=== PATIENT | male | born 1960 | race African-American/Black ===

== ENCOUNTER 2024-02-03 21:27 | Inpatient (IN) | payer SELFPAY ==
[~2024-02-03] VITALS: Ht 167.6 cm; Wt 100.0 kg
[2024-02-03 22:10] LABS: BASOPHILS % 0.3 % (0.0-2.0); EOSINOPHILS % 0.1 % (0.0-5.0); HEMATOCRIT. 39.2 % (42.0-52.0); HEMOGLOBIN. 13.3 g/dL (14.0-18.0); LYMPHOCYTES % 13.3 % (20.0-50.0); MEAN CORPUSCULAR HEMOGLOBIN 31.1 pg (28.0-32.0); MEAN CORPUSCULAR VOLUME 91.2 fL (80.0-94.0); MEAN PLATELET VOLUME 7.7 fl (7.4-10.4); NEUTROPHILS % 78.3 % (40.0-76.0); PLATELET 200 x1000/uL (130-400); RED BLOOD CELL COUNT 4.29 mill/uL (4.7-6.1); RED CELL DISTRIBUTION WIDTH 13.2 % (11.6-14.6); WHITE BLOOD COUNT 7.1 x1000/uL (4.5-11.0)
[2024-02-03 22:23] LABS: CHLORIDE 100 mEq/L (98-107); POTASSIUM 4.1 mEq/L (3.5-5.1); SODIUM 132 mEq/L (136-145)
[2024-02-03 22:24] LABS: CARBON DIOXIDE 24 mEq/L (21-32)
[2024-02-03 22:25] LABS: CALCIUM 8.9 mg/dL (8.7-10.4)
[2024-02-03 22:29] LABS: CREATININE 1.3 mg/dL (0.6-1.3); GLUCOSE 134 mg/dL (70-105)
[2024-02-03 22:30] LABS: UREA NITROGEN BLOOD 13 mg/dL (9-23)
[2024-02-03 22:32] LABS: TROPONIN I HIGH SENSITIVITY 40 ng/L (3.0-53)
[2024-02-03 22:43] LABS: D-DIMER 0.56 mg/L FEU (<0.50); PROTHROMBIN TIME 11.1 sec (9.6-11.0)
[2024-02-04] VITALS (8 sets, daily range): BP systolic 109–145; BP diastolic 55–82; PULSE 62–76; RESP 17–20; TEMP 36.44736–37.2252; O2SAT 96–100
[2024-02-04] MEDS ORDERED: ONDANSETRON HCL 4MG/2ML INJ IV PRN (01:45)
[2024-02-04] MEDS ORDERED: ACETAMINOPHEN 325MG TABLET PO PRN ×2 (01:45)
[2024-02-04] MEDS ORDERED: GUAIFENESIN 200MG/10ML SUGAR FREE UDC PO PRN (01:45)
[2024-02-04] MEDS: LACTATED RINGERS 1,000 ML IV ONE (03:29)
[2024-02-04] MEDS: SODIUM CHLORIDE 0.9% 1,000 ML IV SCH (05:17)
== END 2024-02-04 13:45 | disposition home or self-care (01) | DRG 48 ==
LOC: ER 21:27 → EDBEDREQ 21:58 → 5WST 22:26 → EDBEDREQ 22:38 → EDBEDREQTM 22:38
PROVIDERS: ADMIT Internal Medicine; ATTEND Internal Medicine
DX: G90.89 Other disorders of autonomic nervous system (principal); J06.9 Acute upper respiratory infection, unspecified; Z79.899 Other long term (current) drug therapy
CPT/HCPCS: 36415; 71045; 80048; 83880; 84484; 85025; 85379; 93005; 99285; J7030; J7120